=== PATIENT | female | born 1995 | race Caucasian/White ===

== ENCOUNTER 2019-09-10 22:38 | Inpatient (IN) | payer BC ==
[2019-09-10 23:33] LABS: APPEARANCE,URINE CLEAR; BILIRUBIN,URINE NEGATIVE (NEGATIVE); COLOR,URINE YELLOW; GLUCOSE, URINE NEGATIVE (NEGATIVE); KETONES,URINE NEGATIVE (NEGATIVE); LEUKOCYTE ESTERASE,URINE NEGATIVE (NEGATIVE); NITRITE,URINE NEGATIVE (NEGATIVE); PROTEIN,URINE NEGATIVE (NEGATIVE); URINE SPECIFIC GRAVITY 1.016; UROBILINOGEN,URINE NEGATIVE mg/dL (<2.0)
[2019-09-10 23:53] LABS: URINE AMPHETAMINES SCREEN NEGATIVE; URINE BARBITURATES SCREEN NEGATIVE; URINE BENZODIAZEPINES SCREEN NEGATIVE; URINE COCAINE SCREEN NEGATIVE; URINE MARIJUANA (THC) SCREEN NEGATIVE; URINE METHADONE SCREEN NEGATIVE; URINE PHENCYCLIDINE SCREEN NEGATIVE
[2019-09-10] MEDS ORDERED: PENICILLIN G-K 5 MILLION UNIT VIAL ONE (23:53)
[2019-09-10] MEDS ORDERED: MISOPROSTOL 0.2 MG TABLET ONE (23:53)
[2019-09-10] MEDS ORDERED: PROMETHAZINE HCL INJ 25 MG/1 ML VIAL ONE (23:53)
[2019-09-10] MEDS ORDERED: OXYTOCIN/NORMAL SALINE 20 UNIT/1,000 ML RTUINJ ONE (23:53)
[2019-09-10] MEDS ORDERED: NALBUPHINE HCL INJ 10 MG/1 ML AMPULE ONE (23:53)
[2019-09-10] MEDS ORDERED: LIDOCAINE 1% INJ-PF (10 MG/ML) 30 ML SDV ONE (23:53)
[2019-09-10] MEDS ORDERED: OXYTOCIN 10 UNIT/ML VIAL ONE (23:53)
[2019-09-11] MEDS ORDERED: PENICILLIN G POTASSIUM 5,000,000 UNIT in DEXTROSE 5%-WATER 100 ML IV ONE ×2
[2019-09-11] MEDS ORDERED: RINGERS SOLUTION,LACTATED 1,000 ML IV PRN (00:08)
[2019-09-11] MEDS ORDERED: RINGERS SOLUTION,LACTATED 1,000 ML IV ONE (00:08)
[2019-09-11 00:35] LABS: ABSOLUTE EOSINOPHILS # (AUTO) 0.3 10^3/uL (0.0-0.6); ABSOLUTE LYMPHOCYTES (AUTO) 2.1 10^3/uL (0.5-4.7); ABSOLUTE MONOCYTES (AUTO) 1.2 10^3/uL (0.1-1.4); BASOPHILS % (AUTO) 0.2 % (0-2); EOSINOPHILS % (AUTO) 1.9 % (0-6); HEMATOCRIT 37.6 % (36.0-47.0); HEMOGLOBIN 12.9 g/dL (12.0-15.5); LYMPHOCYTES % (AUTO) 15.7 % (13-45); MEAN CORPUSCULAR HEMOGLOBIN 30.7 pg (27.0-33.4); MEAN CORPUSCULAR HGB CONC 34.3 g/dL (32.0-36.0); MEAN CORPUSCULAR VOLUME 89 fl (80-97); MONOCYTES % (AUTO) 8.9 % (3-13); PLATELET COUNT 152 10^3/uL (150-450); RED BLOOD COUNT 4.21 10^6/uL (3.72-5.28); RED CELL DISTRIBUTION WIDTH 15.5 % (11.5-14.0); SEGMENTED NEUTROPHILS % (AUTO) 73.3 % (42-78); TOTAL CELLS COUNTED % (AUTO) 100 %; WHITE BLOOD COUNT 13.7 10^3/uL (4.0-10.5)
[2019-09-11] MEDS ORDERED: EPHEDRINE SULFATE INJ 50 MG/1 ML AMPULE ONE (01:08)
[2019-09-11] MEDS ORDERED: FENTANYL CITRATE INJ/PF 100 MCG/2 ML AMPUL ONE (01:08)
[2019-09-11] MEDS ORDERED: BUPIVACAINE HCL 0.25 % INJ/PF (2.5 MG/1 ML) 30 ML VIAL ONE (01:08)
[2019-09-11] MEDS ORDERED: FENTANYL/BUPIVACAINE/NS/PF 300 MCG/150 ML RTUINJ EPI ONE (01:08)
[2019-09-11] MEDS ORDERED: PHENYLEPHRINE HCL INJ/PF 10 MG/1 ML SDV ONE (01:08)
[2019-09-11] MEDS ORDERED: PENICILLIN G-K 5 MILLION UNIT VIAL ONE ×2 (03:04→06:48)
[2019-09-11] MEDS: PENICILLIN G POTASSIUM 2,500,000 UNIT in DEXTROSE 5%-WATER 50 ML IV SCH ×2 (03:10→07:01)
[2019-09-11] MEDS ORDERED: LIDOCAINE 2%/EPINEPHRINE INJ 20 ML VIAL ONE (03:43)
--- NOTE | 2019-09-11 04:25 | Admission Physical ---
Datetime Report Generated by CPN: 09/11/2019 04:25 CURRENT ADMISSION Chief Complaint: Uterine Contractions; Suspected Ruptured Membranes Indication for Induction: Not Applicable Admit Impression : Term, Intrauterine Admit Plan: Admit to Unit; Initiate Labor Protocol ALLERGIES Medication Allergies: No OBSTETRICAL HISTORY EDC: 09/12/2019 00:00 : 1 Para: 0 Gestational Diabetes: No Rh Sensitization: No Incompetent Cervix: No MARY: No Infertility: No ART Treatment: No Uterine Anomaly: No IUGR: No Hx Previous C/S: No Macrosomia: No Hx Loss/Stillborn: No PIH: No Hx : No Placenta Previa/Abruption: No Depression/PP Depression: No PTL/PROM: No Post Hemorrhage: No SEE RECORDS Alcohol: No Marijuana : No Cocaine: No Other Illicit Drugs: No Cigarettes: Never Smoker. [id number] MEDICAL HISTORY Diabetes: No Blood Transfusion: No Pulmonary Disease (Asthma, TB): No Breast Disease: No Hypertension: No Pick Up Attendant Surgery: No Heart Disease: No Hosp/Surgery: No Autoimmune Disorder: No Anesthetic Complications: No Kidney Disease: No Abnormal Pap Smear: No Neuro/Epilepsy: No Psychiatric Disorders: No Other Medical Diseases: No Hepatitis/Liver Disease: No Significant Family History: No Varicosities/Phlebitis: No Trauma/Violence : No Thyroid Dysfunction: No INFECTIOUS HISTORY Gonorrhea: No Genital Herpes: No Chlamydia: No Tuberculosis: No Syphilis: No Hepatitis: No HIV/AIDS Exposure: No Rash or Viral Illness: No HPV: No PHYSICAL EXAM General: Normal HEENT: Normal Neurologic: Normal Thyroid: Normal Heart: Normal Lungs: Normal Breast: Deferred Back: Normal Abdomen: Normal Genitourinary Exam: Normal Extremities: Normal DTRs: Normal Pelvic Type: Adequate FETUS A EGA: 39.6 PLANS FOR LABOR AND DELIVERY Labor and Delivery: None Pain Management: Epidural Circumcision: Yes INFORMED CONSENT Signature: with User ID: [email or web address]
[2019-09-11] MEDS ORDERED: DIPHENHYDRAMINE HCL 25 MG CAPSULE PO PRN (07:22)
[2019-09-11] MEDS ORDERED: OXYTOCIN/NORMAL SALINE 20 UNIT/1,000 ML RTUINJ IV PRN (07:22)
[2019-09-11] MEDS ORDERED: MEASLES,MUMPS&RUBELLA VACC/PF 0.5 ML VIAL SUBCUT PRN (07:22)
[2019-09-11] MEDS ORDERED: MAGNESIUM HYDROXIDE SUSP 30 ML UDCUP PO PRN (07:22)
[2019-09-11] MEDS ORDERED: GLYCERIN/WITCH HAZEL LEAF 1 EACH MED..WIPE TP PRN (07:22)
[2019-09-11] MEDS ORDERED: PROMETHAZINE HCL 25 MG TABLET PO PRN (07:22)
[2019-09-11] MEDS ORDERED: NA PHOS,M-B/NA PHOS,DI-BA (ADULT) 133 ML ENEMA PR PRN (07:22)
[2019-09-11] MEDS ORDERED: ACETAMINOPHEN 650 MG SUPP.RECT PR PRN (07:22)
[2019-09-11] MEDS ORDERED: DIBUCAINE 1% OINTMENT 28 GM TP PRN (07:22)
[2019-09-11] MEDS ORDERED: PSEUDOEPHEDRINE HCL 30 MG TABLET PO PRN (07:22)
[2019-09-11] MEDS ORDERED: PROMETHAZINE HCL 25 MG SUPP.RECT PR PRN (07:22)
[2019-09-11] MEDS ORDERED: BENZOCAINE/MENTHOL AEROSOL SPRAY 56 ML TOP PRN (07:22)
[2019-09-11] MEDS ORDERED: PROMETHAZINE HCL INJ 25 MG/1 ML VIAL IV PRN (07:22)
[2019-09-11] MEDS ORDERED: ZOLPIDEM TARTRATE 5 MG TABLET PO PRN (07:22)
[2019-09-11] MEDS ORDERED: DIPH/PERTUSS(ACELL)/TETANUS VAC/PF 0.5 ML SYR (>=10YO) IM PRN (07:22)
[2019-09-11] MEDS ORDERED: ACETAMINOPHEN WITH CODEINE #3 TABLET PO PRN ×2 (07:22)
[2019-09-11] MEDS ORDERED: IBUPROFEN 800 MG TABLET ONE (07:55)
[2019-09-11] MEDS: DOCUSATE SODIUM 100 MG CAPSULE PO SCH ×2 (15:19→23:13)
[2019-09-11] MEDS: PRENATAL VITAMIN W DHA CAPSULE PO SCH (15:20)
[2019-09-11] MEDS: IBUPROFEN 800 MG TABLET PO SCH ×2 (15:20→22:17)
[2019-09-11] MEDS: FERROUS SULFATE 325 MG TABLET PO SCH ×2 (15:20→23:13)
[2019-09-11] MEDS: FAMOTIDINE 20 MG TABLET PO SCH ×2 (15:20→22:19)
[2019-09-11] MEDS: SENNOSIDES/DOCUSATE 8.6-50 MG 1 EACH TABLET PO SCH (15:20)
--- NOTE | 2019-09-11 16:18 | Delivery Summary ---
Del Sum A-C Datetime Report Generated by CPN: 09/11/2019 16:18 DELIVERY PERSONNEL DELIVERY PERSONNEL: [id number] Delivery Doctor:: Pepe Ji MD Labor and Delivery Nurse:: Nilsa French RN Labor and Delivery Nurse:: Carolin Dunlap RN Nursery Nurse:: Audrey Clark RN Crop Duster/INSPECTOR REPAIRER SANDSTONE: Nasrin Grey, MEDICAL STAFF PHYSICIAN MATERNAL INFORMATION Delivery Anesthesia: None Medications After Delivery: Pitocin Drip 20 Units/1000ml NSS Meds After Delivery Comment: pitocin 20 units in 1000 mL nss Maternal Complications: None LABOR SUMMARY EDC: 09/12/2019 00:00 No. Babies in Womb: 1 Attempted: No Labor Anesthesia: Epidural LABOR INFORMATION Reason for Induction: Not Applicable Onset of Labor: 09/10/2019 20:30 Complete Dilatation: 09/11/2019 06:03 Oxytocin: N/A Group B Beta Strep: positive Antibiotics # of Doses: 3 Antibiotics Time of Last Dose: 0700 Name of Antibiotic Given: PCN Steroids Given: None Reason Steroids Not Administered: Not Applicable MEMBRANES Membranes Rupture Method: Spontaneous Rupture of Membranes: 09/10/2019 20:30 Length of Rupture (hr): 10.67 Amniotic Fluid Color: Clear Amniotic Fluid Amount: Scant Amniotic Fluid Odor: Normal STAGES OF LABOR Stage 1 hr: 9 Stage 1 min: 33 Stage 2 hr: 1 Stage 2 min: 7 Stage 3 hr: 0 Stage 3 min: 6 Total Time in Labor hr: 10 Total Time in Labor min: 46 VAGINAL DELIVERY Episiotomy: None Laceration #1: None Laceration Extension #1: N/A Laceration Repair: Not Applicable Sponge Count Correct: Yes Sharps Count Correct: Yes CSECTION DELIVERY Primary Indication: N/A Secondary Indication: N/A CSection Incidence: N/A Labor: N/A Elective: N/A CSection Incision: N/A BABY A INFORMATION Delivery Date/Time: 09/11/2019 07:10 Method of Delivery: Vaginal Born in Route : No : N/A Forceps: N/A Vacuum Extraction: N/A Shoulder Dystocia : No PRESENTATION/POSITION BABY A Presentation: Cephalic Cephalic Presentation: Vertex Vertex Position: Left Occipital Anterior Breech Presentation: N/A PLACENTA INFORMATION BABY A Placenta Delivery Time : 09/11/2019 07:16 Placenta Method of Delivery: Spontaneous Placenta Status: Delivered SCORES BABY A Heart Rate 1 min: >100 bpm Resp Effort 1 min: Good Cry Reflex Irritability 1 min: Cough or Sneeze or Pulls Away Muscle Tone 1 min: Active Motion Color 1 min: Blue/Pale Resuscitation Effort 1 min: Tactile Stimulation SCORE 1 MIN: 8 Heart Rate 5 min: >100 bpm Resp Effort 5 min: Good Cry Reflex Irritability 5 min: Cough or Sneeze or Pulls Away Muscle Tone 5 min: Active Motion Color 5 min: Body [place], Extremities Blue Resuscitation Effort 5 min: N/A SCORE 5 MIN: 9 INFORMATION BABY A Gestational Age at Delivery: 39.6 Gestational Status: Full Term- 39- 40.6 Weeks Outcome : Liveborn Condition : Stable Sex: Male IDENTIFICATION BABY A Verification Date/Time: 09/11/2019 07:29 ID Band Number: [id number] Mother's Name Verified: Yes RN Verifying : B Baidy RN/H Germán RN WEIGHT/LENGTH BABY A Infant Birthweight (gm): 2929 Weight (lb): 6 Infant Weight (oz): 7 Infant Length (in): 20.00 Length (cm): 50.80 CORD INFORMATION BABY A No. Cord Vessels: 3 Nuchal Cord : Around Neck x1, Loose Cord Blood Taken: Yes-For Storage (Mom's Blood type +) Suction: None BABY B INFORMATION : N/A SIGNATURES Signature: with User ID: [email or web address]
[2019-09-12 06:47] LABS: MEAN CORPUSCULAR HEMOGLOBIN 30.9 pg (27.0-33.4); MEAN CORPUSCULAR HGB CONC 34.3 g/dL (32.0-36.0); MEAN CORPUSCULAR VOLUME 90 fl (80-97); PLATELET COUNT 148 10^3/uL (150-450); RED BLOOD COUNT 3.89 10^6/uL (3.72-5.28); RED CELL DISTRIBUTION WIDTH 15.8 % (11.5-14.0)
[2019-09-12] MEDS: IBUPROFEN 800 MG TABLET PO SCH ×3 (08:23→21:23)
[2019-09-12] MEDS: DOCUSATE SODIUM 100 MG CAPSULE PO SCH ×2 (09:29→17:46)
[2019-09-12] MEDS: PRENATAL VITAMIN W DHA CAPSULE PO SCH (09:29)
[2019-09-12] MEDS: FERROUS SULFATE 325 MG TABLET PO SCH ×2 (09:30→17:46)
[2019-09-12] MEDS: SENNOSIDES/DOCUSATE 8.6-50 MG 1 EACH TABLET PO SCH (09:30)
[2019-09-12] MEDS: FAMOTIDINE 20 MG TABLET PO SCH ×2 (09:30→21:23)
--- NOTE | 2019-09-12 12:03 | PDOC PROGRESS REPORT ---
Subjective-OB Progress Note for:: 09/12/19 Subjective: Pt doing well, no complaints. She denies heavy bleeding, reports reg diet and voiding without difficulty. Physical Exam (OB) Vital Signs: Temp Pulse Resp BP Pulse Ox 98.1 F 57 L 16 106/61 100 09/12/19 08:01 09/12/19 08:01 09/12/19 08:01 09/12/19 08:01 09/12/19 08:01 Intake & Output 09/11/19 09/12/19 09/13/19 06:59 06:59 06:59 Intake Total 600 Balance 600 Weight 157.6 kg - PIH/Pre-Eclampsia Clonus: Negative Headache: Absent Epigastric Pain: No Visual Changes: No - Lochia Lochia Amount: Small 10-25 ml Lochia Color: Rubra/Red - Abdomen Description: Soft Hernia Present: No Fundal Description: Firm, Midline Fundal Height: u/3 - u/4 Objective-Diagnostic Laboratory: 09/12/19 06:36 09/12/19 06:36 WBC 19.0 H RBC 3.89 Hgb 12.0 Hct 35.0 L MCV 90 MCH 30.9 MCHC 34.3 RDW 15.8 H Plt Count 148 L Assessment and Plan(PN) - Assessment and Plan (1) Hx of herpes genitalis Is this a current diagnosis for this admission?: Yes (2) Vaginal delivery Is this a current diagnosis for this admission?: Yes - Time Spent with Patient Time with patient: Less than 15 minutes Medications reviewed and adjusted accordingly: Yes - Disposition Anticipated Discharge: Home Within: within 24 hours
[2019-09-13] MEDS: IBUPROFEN 800 MG TABLET PO SCH ×2 (05:10→13:36)
[2019-09-13 07:52] VITALS: BP 115/66
[2019-09-13 08:50] LABS: HSV-I IGG AB 6.67 index (0.00-0.90)
[2019-09-13] MEDS: FERROUS SULFATE 325 MG TABLET PO SCH (09:09)
[2019-09-13] MEDS: FAMOTIDINE 20 MG TABLET PO SCH (09:09)
[2019-09-13] MEDS: PRENATAL VITAMIN W DHA CAPSULE PO SCH (09:09)
[2019-09-13] MEDS: SENNOSIDES/DOCUSATE 8.6-50 MG 1 EACH TABLET PO SCH (09:09)
[2019-09-13] MEDS: DOCUSATE SODIUM 100 MG CAPSULE PO SCH (09:09)
--- NOTE | 2019-09-13 11:26 | PDOC DISCHARGE SUMMARY ---
Impression - Admit/DC Date/PCP Admission Date/Primary Care Provider: 09/10/19 23:51 BERTIN CHARLES MD Discharge Date: 09/13/19 - Discharge Diagnosis (1) Hx of herpes genitalis Is this a current diagnosis for this admission?: Yes (2) Vaginal delivery Is this a current diagnosis for this admission?: Yes - Additional Information Discharge Diet: Regular Discharge Activity: Balance Activity w/Rest, Pelvic Rest Referrals: BERTIN CHARLES MD [Primary Care Provider] - Prescriptions: Ibuprofen [Motrin 800 mg Tablet] 800 mg PO Q8HP PRN #90 tablet PRN Reason: Home Medications: Vit,Calc76/Iron/Folic [Prenatabs Rx Tablet] 1 each PO DAILY 09/11/19 Ibuprofen [Motrin 800 mg Tablet] 800 mg PO Q8HP PRN #90 tablet 09/13/19 HPI Gestational Age: 39+6 Reason(s) for Admission: Onset of Labor Procedures: NST Intrapartum Procedure(s): Spontaneous Vaginal Delivery Results Laboratory Results: WBC 19.0 10^3/uL (4.0-10.5) H 09/12/19 06:36 RBC 3.89 10^6/uL (3.72-5.28) 09/12/19 06:36 Hgb 12.0 g/dL (12.0-15.5) 09/12/19 06:36 Hct 35.0 % (36.0-47.0) L 09/12/19 06:36 MCV 90 fl (80-97) 09/12/19 06:36 MCH 30.9 pg (27.0-33.4) 09/12/19 06:36 MCHC 34.3 g/dL (32.0-36.0) 09/12/19 06:36 RDW 15.8 % (11.5-14.0) H 09/12/19 06:36 Plt Count 148 10^3/uL (150-450) L 09/12/19 06:36 Lymph % (Auto) 15.7 % (13-45) 09/11/19 00:13 [place] % (Auto) 8.9 % (3-13) 09/11/19 00:13 Eos % (Auto) 1.9 % (0-6) 09/11/19 00:13 Baso % (Auto) 0.2 % (0-2) 09/11/19 00:13 Absolute Neuts (auto) 10.0 10^3/uL (1.7-8.2) H 09/11/19 00:13 Absolute Lymphs (auto) 2.1 10^3/uL (0.5-4.7) 09/11/19 00:13 Absolute Monos (auto) 1.2 10^3/uL (0.1-1.4) 09/11/19 00:13 Absolute Eos (auto) 0.3 10^3/uL (0.0-0.6) 09/11/19 00:13 Absolute Basos (auto) 0.0 10^3/uL (0.0-0.2) 09/11/19 00:13 Seg Neutrophils % 73.3 % (42-78) 09/11/19 00:13 Urine Color YELLOW 09/10/19 22:47 Urine Appearance CLEAR 09/10/19 22:47 Urine pH 6.0 (5.0-9.0) 09/10/19 22:47 Ur Specific [place] 1.016 09/10/19 22:47 Urine Protein NEGATIVE mg/dL (NEGATIVE) 09/10/19 22:47 Urine Glucose (UA) NEGATIVE mg/dL (NEGATIVE) 09/10/19 22:47 Urine Ketones NEGATIVE mg/dL (NEGATIVE) 09/10/19 22:47 Urine Blood NEGATIVE (NEGATIVE) 09/10/19 22:47 Urine Nitrite NEGATIVE (NEGATIVE) 09/10/19 22:47 Urine Bilirubin NEGATIVE (NEGATIVE) 09/10/19 22:47 Urine Urobilinogen NEGATIVE mg/dL (<2.0) 09/10/19 22:47 Ur Leukocyte Esterase NEGATIVE (NEGATIVE) 09/10/19 22:47 Urine Ascorbic Acid 40 (NEGATIVE) H 09/10/19 22:47 Membranes Rupture POSITIVE (NEGATIVE) H 09/10/19 22:54 Urine Opiates Screen NEGATIVE 09/10/19 22:47 Urine Methadone Screen NEGATIVE 09/10/19 22:47 Ur Barbiturates Screen NEGATIVE 09/10/19 22:47 Ur Phencyclidine Scrn NEGATIVE 09/10/19 22:47 Ur Amphetamines Screen NEGATIVE 09/10/19 22:47 U Benzodiazepines Scrn NEGATIVE 09/10/19 22:47 Urine Cocaine Screen NEGATIVE 09/10/19 22:47 U Marijuana (THC) Screen NEGATIVE 09/10/19 22:47 RPR NONREACTIVE (NONREACTIVE) 09/11/19 00:13 HSV I IgG Ab 6.67 index (0.00-0.90) H 09/11/19 10:49 HSV II Specific Ab < 0.91 index (0.00-0.90) 09/11/19 10:49 Blood Type A POSITIVE 09/11/19 00:13 Antibody Screen NEGATIVE 09/11/19 00:13 Plan Plan of Treatment: f/u 4 weeks at [facility] for PP check
== END 2019-09-13 13:55 | disposition home or self-care (01) | DRG 807 ==
LOC: LC 22:38 → LR 23:51 → 2S 09-11 09:47
PROVIDERS: ADMIT Obstetrics & Gynecology Gynecology; ATTEND Obstetrics & Gynecology Gynecology
PROC: 10E0XZZ Delivery of Products of Conception, External Approach (ICD-10-PCS; principal; 2019-09-11)
DX: O69.81X0 Labor and delivery complicated by cord around neck, without compression, not applicable or unspecified (principal); Z37.0 Single live birth; O99.824 Streptococcus B carrier state complicating childbirth; Z3A.39 39 weeks gestation of pregnancy
CPT/HCPCS: 36415; 80307; 81005; 84112; 85025; 85027; 86592; 86695; 86696; 86850; 86900; 86901; J2300; J2370; J2540; J2550; J2590; J3010; J3490; J7060